=== PATIENT | female | born 1990 | race Caucasian/White ===

== ENCOUNTER 2017-06-16 19:21 | Emergency (ER) | payer OTHER ==
[2017-06-16 19:34] VITALS: TEMP 98.8
--- NOTE | 2017-06-16 21:06 | EDPHY ---
H & P Stated Complaint: cut roght base of pinkie finger with a knife, right hand HPI/ROS: CHIEF COMPLAINT: Laceration HISTORY OF PRESENT ILLNESS: Patient presents with laceration to the right hand that she sustained while cooking this evening. Mild pain to the area. Minimal bleeding. No difficulty flexing or extending the finger. No injury to the palm of the hand. She also has a superficial laceration on the left hand. Tetanus is updated less than a year ago she took a turn to [facility]. No extensive bleeding. No bleeding disorders. No other associated complaints or modifying factors. TIME OF INJURY: Less than 2 hours ago TETANUS STATUS: Current as of this year REVIEW OF SYSTEMS: Ten systems reviewed and are negative unless otherwise noted in the HPI EXAMINATION General Appearance: Alert, no distress Head: normocephalic, atraumatic Cardiovascular: Pulses normal throughout. Symmetric radial pulses 2+ Brisk cap refill Neurological: A&O, sensory symmetric, strength symmetric Skin: Warm and dry, no rash. There is a 1.25 cm on the right hand, base of the 5th phalanx, ulnar side. No bleeding. No tendon exposure. No foreign body. Superficial abrasion to the left hand, ulnar side. No bleeding. No foreign body. No tendon exposure Extremities: Nontender, no pedal edema DIFFERENTIAL DIAGNOSES: Including but not limited to laceration, superficial laceration, laceration with tendon injury, laceration foreign body MDM: 7:55 p.m. Laceration to the ulnar aspect of the right hand at the base of the 5th phalanx. No evidence of foreign body. No evidence of tendon injury. Neurovascular intact distally. Wound has been anesthetized. Proceed with irrigation closure 8:45 p.m. Laceration of the right hand over the base of the 5th phalanx with superficial laceration to the left hand. Right laceration was closed without complication. Wound care discussed. Follow up here in 7-10 days for suture removal. ED precautions discussed PROCEDURE: Laceration repair Consent: Verbal Location: Right hand, base of the 5th phalanx, ulnar side Length of repair: 1.25 cm Complexity: simple Layer involvement: Single Anesthesia: Local, 1% lidocaine plain, 5 mL Irrigation: Extensive Debridement: None Procedure description: Following good anesthesia, the wound was copiously irrigated. Wound bed was explored and there is no foreign body noted. No evidence of tendon injury. Wound borders were approximated well with good hemostasis. Tolerated well without complication. Suture/Staple material: 5-0 Prolene, 2 simple interrupted sutures Wound care: Routine as discussed Suture/Staple removal: 7-10 Days SUTURE STAPLE REMOVAL: 7-10 days ED Precautions: Worsening pain. Erythema, edema, cyanosis, pallor, paresthesia or anesthesia. SUPERVISION: This patient was independently evaluated without direct examination by the attending physician. Case was discussed with attending physician. Source: Patient Exam Limitations: No limitations - Personal History LMP (Females 10-55): 1-7 Days Ago Current Tetanus Diphtheria and Acellular Pertussis (TDAP): Yes Tetanus Vaccine Date: 2016 - Medical/Surgical History Hx Asthma: No Hx Chronic Respiratory Disease: No Hx Diabetes: No Hx Cardiac Disease: No Hx Renal Disease: No Hx Cirrhosis: No Hx Alcoholism: No Hx HIV/AIDS: No Hx Splenectomy or Spleen Trauma: No Other PMH: wisdom teeth - Social History Smoking Status: Never smoked Constitutional: Initial Vital Signs Temperature (C) 98.8 F 06/16/17 19:30 Heart Rate 64 06/16/17 19:30 Respiratory Rate 18 06/16/17 19:30 Blood Pressure 108/68 06/16/17 19:30 O2 Sat (%) 98 06/16/17 19:30 O2 Delivery Mode Room Air Allergies/Adverse Reactions: No Known Allergies Allergy (Unverified 06/16/17 19:30) Home Medications: Medication Instructions Recorded Ocella 3 mg-0.03 mg Tablet 06/16/17 Departure - Departure Disposition: Home, Routine, Self-Care Clinical Impression: Laceration of hand Qualifiers: Encounter type: initial encounter Foreign body presence: without foreign body Laterality: right Qualified Code(s): S61.411A - Laceration without foreign body of right hand, initial encounter Condition: Good Instructions: Care For Your Stitches (ED), Laceration (ED) Additional Instructions: 1. Daily wound care as discussed 2. Return here in 7-10 days for suture removal 3. ED precautions as discussed Referrals: NONE *PRIMARY CARE P,. [Primary Care Provider] - As per Instructions Darron South MD [Medical Doctor] - As per Instructions Physician,Emergency DeptMD [Medical Doctor] - As per Instructions
[2017-06-16 21:18] VITALS: BP 104/81; PULSE 63; RESP 16; O2SAT 97
== END 2017-06-16 21:18 | disposition home or self-care (01) ==
PROC: 0HQFXZZ Repair Right Hand Skin, External Approach (ICD-10-PCS; principal; 2017-06-16)
DX: S61.411A Laceration without foreign body of right hand, initial encounter (principal); W26.0XXA Contact with knife, initial encounter